=== PATIENT | female | born 1995 ===

== ENCOUNTER 2025-02-12 09:48 | Emergency (ER) | payer SELFPAY ==
[2025-02-12 09:56] VITALS: BP 113/77
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
== END 2025-02-12 10:41 | disposition home or self-care (01) ==
LOC: EMR 09:48
PROVIDERS: EMERGENCY PHYSICIAN Emergency Medicine; FAMILY PHYSICIAN Family Medicine
DX: S16.1XXA Strain of muscle, fascia and tendon at neck level, initial encounter (principal); V43.52XA Car driver injured in collision with other type car in traffic accident, initial encounter; Y92.410 Unspecified street and highway as the place of occurrence of the external cause
CPT/HCPCS: 99282